=== PATIENT | female | born 1955 | race Caucasian/White ===

== ENCOUNTER 2024-08-14 15:28 | Outpatient (CLI) | payer MEDICARE, SELFPAY ==
--- NOTE | ~2024-08-14 | XR_ITS ---
EXAMINATION: XR chest 2V DATE: 08/14/2024 16:17 INDICATION: COPD. Productive cough. TECHNIQUE: frontal and lateral views of the chest were obtained. COMPARISON: None FINDINGS: Mild increased lucency with some architectural distortion in the right upper lung zone consistent wit h provided history of COPD. No focal airspace opacities, pulmonary edema, pleural effusion or pneumot horax. The cardiomediastinal silhouette is normal. 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 IMPRESSION: 1. No acute cardiopulmonary disease. Reviewed, dictated and finalized at location B.
[2024-08-14 16:41] LABS: Add Urine Microscopic? YES; Appearance Urine Clear (Clear); Bilirubin Urine Negative (Negative); Blood Urine Negative (Negative); Color Urine Yellow (Yellow); Glucose Urine UA Negative (Negative); Ketones Urine 1+ (Negative); Leukocyte Esterase Ur 1+ (Negative); Nitrate Urine Negative (Negative); Protein Urine Negative (Negative); Specific Grav Ur 1.025 (1.010-1.020); Urobilinogen Urine 0.2 mg/dL (0.2-1.0); pH Urine 5.5 (5.0-8.0)
[2024-08-14 16:48] LABS: Bacteria Urine 2+ /hpf; Hyaline Casts Urine Present /lpf; RBC Urine None seen /hpf (0-2); Squamous Epithelial Cell Urine Few /hpf (Few)
== END 2024-08-14 15:29 | disposition home or self-care (01) ==
LOC: CHSLAB 15:34
PROVIDERS: PCP Internal Medicine; Visit Provider Internal Medicine
DX: J44.9 Chronic obstructive pulmonary disease, unspecified (principal); N39.0 Urinary tract infection, site not specified
CPT/HCPCS: 71046; 81001; 87077; 87086; 87088; 87181

== ENCOUNTER 2024-08-21 10:59 | Outpatient (CLI) | payer MEDICARE, SELFPAY ==
--- NOTE | 2024-08-21 11:36 | PCRCNOTE ---
Patient came in today for a PFT today. I attempted multiple mouth pieces and coaching efforts, but the patient had a hard time understanding the test. Doctor Goins's nurse was notified.
== END 2024-08-21 11:00 | disposition home or self-care (01) ==
LOC: CHSCARD 11:01
PROVIDERS: PCP Internal Medicine; Visit Provider Internal Medicine
DX: J44.9 Chronic obstructive pulmonary disease, unspecified (principal); N39.0 Urinary tract infection, site not specified
CPT/HCPCS: 99199